=== PATIENT | female | born 1985 | race Caucasian/White ===

== ENCOUNTER 2020-06-27 19:27 | Emergency (ER) | payer BC ==
[~2020-06-27] VITALS: Ht 167.6 cm; Wt 81.8 kg
[~2020-06-27 19:27] MED LIST: MULTIPLE VITAMI1 TA1 PO
[2020-06-27 19:31] VITALS: BP 125/98; Ht 167.6 cm; Wt 81.8 kg
[2020-06-27 19:55] LABS: BASOPHILS 0.5 % (0-2); HEMATOCRIT 45.1 % (36.0-48.0); HEMOGLOBIN 14.8 g/dL (12-16); IMMATURE GRANULOCYTES 0.2 % (0-5); LYMPHOCYTE ABS# 2.18 10x3/uL (1.18-3.74); LYMPHOCYTES 26.6 % (15-50); MCH 30.1 pg (26.0-34.0); MCHC 32.8 g/dL (31.0-37.0); MCV 91.7 fL (80.0-100.0); MEAN PLATELET VOLUME 10.7 fL (7.4-10.4); MONOCYTES 5.9 % (2-11); NEUTROPHIL ABS# 5.23 10x3/uL (1.56-6.13); NEUTROPHILS 63.8 % (40-80); RBC 4.92 10x6/uL (4.00-5.40); RDW 14.1 % (11.5-14.5); WBC 8.2 10x3/uL (4.8-10.8)
[2020-06-27 19:56] LABS: PLATELET COUNT 309 10x3/uL (130-400)
[2020-06-27 20:00] LABS: HCG URINE NEGATIVE (NEGATIVE)
[2020-06-27 20:04] LABS: BILIRUBIN NEGATIVE (NEGATIVE); KETONE NEGATIVE (NEGATIVE); NITRITE NEGATIVE (NEGATIVE); UROBILINOGEN NORMAL mg/dL (< 2)
[2020-06-27 20:19] LABS: CALC OSMOLALITY 280 mosm/kg (275-300); CARBON DIOXIDE 22.8 mmol/L (21.0-32.0); CHLORIDE - SERUM 106 mmol/L (98-107); CREATININE - SERUM 0.9 mg/dL (0.6-1.3); GLUCOSE 105 mg/dL (74-106); POTASSIUM - SERUM 4.2 mmol/L (3.5-5.1); SODIUM 140 mmol/L (136-145); UREA NITROGEN 18 mg/dL (7-18); eGFR NON AFRICAN AMERICAN 76 mL/min (90-120)
[2020-06-27 20:25] LABS: ALBUMIN 3.4 g/dL (3.4-5.0); ALKALINE PHOSPHATASE 53 U/L (30-120); ALT (SGPT) 41 U/L (10-68); BILIRUBIN - TOTAL 0.19 mg/dL (0.2-1.3); PROTEIN - SERUM 7.7 g/dL (6.4-8.2)
== END 2020-06-27 22:00 | disposition left against medical advice (07) ==
LOC: D.ER 19:27
PROVIDERS: Family Medicine
DX: R30.0 Dysuria (principal); K08.89 Other specified disorders of teeth and supporting structures; R53.83 Other fatigue

== ENCOUNTER 2020-07-26 16:21 | Emergency (ER) | payer BC ==
[~2020-07-26] VITALS: Ht 167.6 cm; Wt 80.5 kg
[2020-07-26 16:32] VITALS: BP 130/86; Ht 167.6 cm; Wt 80.5 kg
[2020-07-26] MEDS ORDERED: PRENAVITE1 TAB PO (16:35)
[2020-07-26] MEDS ORDERED: FERROUS SULFAT325 MG PO ×2 (16:35→16:36)
[2020-07-26] MEDS ORDERED: AZO STANDARD95 MG PO (16:36)
[2020-07-26 17:27] LABS: BASOPHILS 0.5 % (0-2); EOSINOPHILS 2.7 % (0-7); HEMATOCRIT 39.7 % (36.0-48.0); HEMOGLOBIN 13.3 g/dL (12-16); LYMPHOCYTES 25.4 % (15-50); MCH 29.8 pg (26.0-34.0); MCHC 33.5 g/dL (31.0-37.0); MCV 88.9 fL (80.0-100.0); MONOCYTES 7.6 % (2-11); NEUTROPHILS 63.8 % (40-80); PLATELET COUNT 219 10x3/uL (130-400); RBC 4.46 10x6/uL (4.00-5.40); RDW 13.5 % (11.5-14.5); WBC 6.5 10x3/uL (4.8-10.8)
[2020-07-26 17:32] LABS: SQUAMOUS EPITHELIAL OCC HPF (0-4); WHITE CELLS - URINE 25-50 HPF (0-4)
[2020-07-26 17:33] LABS: CALC OSMOLALITY 273 mosm/kg (275-300); CALCIUM 8.3 mg/dL (8.5-10.1); CHLORIDE - SERUM 105 mmol/L (98-107); CREATININE - SERUM 0.7 mg/dL (0.6-1.3); GLUCOSE 92 mg/dL (74-106); HCG SERUM POSITIVE (NEGATIVE); POTASSIUM - SERUM 4.5 mmol/L (3.5-5.1); SODIUM 137 mmol/L (136-145); UREA NITROGEN 13 mg/dL (7-18); eGFR NON AFRICAN AMERICAN > 90 mL/min (90-120)
[2020-07-26 17:33] LABS: BACTERIA FEW HPF (NONE SEEN)
[2020-07-26 18:02] LABS: ALKALINE PHOSPHATASE 42 U/L (30-120); ALT (SGPT) 55 U/L (10-68); HCG - QUANTITATIVE (MATERNAL) 54997 mIU/mL; PROTEIN - SERUM 6.4 g/dL (6.4-8.2)
== END 2020-07-26 18:15 | disposition home or self-care (01) ==
LOC: D.ER 16:21
PROVIDERS: Emergency Medicine
DX: O20.0 Threatened abortion (principal); Z3A.08 8 weeks gestation of pregnancy; N93.9 Abnormal uterine and vaginal bleeding, unspecified